=== PATIENT | female | born 1965 | race Caucasian/White ===

== ENCOUNTER 2025-02-15 06:59 | Day surgery (SDC) | payer OTHER, SELFPAY ==
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
[2025-02-11 10:13] VITALS: BMI 34.6
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
--- OUTSIDE RECORDS SUMMARY | 2025-02-11 17:14 | XMS_ITS | Clinical Summary ---
Author Organization [facility] Address [address] [place] [address] Care Team Providers Care Printing Grey Cloth Tender Name Role Phone Deb Matthew MD Primary Care Provider [phone] Allergies Active Allergy Reactions Criticality Noted Date Comments Alternaria Alternata 03/06/2016 Allegies testing Animal Dander 03/06/2016 Allergies testing Aspergillus Species 03/06/2016 Bermuda Grass 03/06/2016 Allergies testing Dronabinol 03/04/2014 rash Dust Mite Extract 03/06/2016 Lambs Quarters 03/06/2016 Allegies testing Latex 12/10/2018 Other reaction(s): Rash/Dermatitis Molds & Smuts 03/06/2016 (HELMINTHOSPORIUM) Allegies skin test Povidone Iodine 03/06/2016 Allergies testing Medications Medication Sig Dispensed Refills Start Date End Date Status lidocaine (LIDODERM) 5 % lidocaine 5 % topical patch 0 Active Lidocaine HCl 3 % CREA lidocaine HCl 3 % topical cream 0 03/10/2019 Active fluticasone (FLONASE) 50 MCG/ACT nasal spray fluticasone propionate 50 mcg/actuation nasal spray,suspension 0 Active methocarbamol (ROBAXIN) 750 MG tablet 0 04/06/2019 Active gabapentin (NEURONTIN) 600 MG tablet 0 03/11/2019 Active Naloxone HCl (NARCAN) 4 MG/0.1ML LIQD Narcan 4 mg/actuation nasal spray 0 09/27/2017 Active ibuprofen (ADVIL,MOTRIN) 600 MG tablet 0 04/06/2019 Active EPINEPHrine 0.3 MG/0.3ML SOAJ 0 02/03/2019 Active acetaminophen (TYLENOL 8 HOUR) 650 MG CR tablet Take 650 mg by mouth. 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 There is bilateral neural foraminal narrowing at the same level. Overview: 02/09-mri lumber-There is a moderate central disc herniation at L5-S1 without focal nerve root compression. Degenerative disc disease of the L5-S1 disc Abdominal pain, chronic, generalized 05/19/2010 Left-sided chest wall pain 12/30/2009 Family history of malignant neoplasm of gastrointestinal tract 12/30/2009 Overview: Overview: Negative colonoscopy 06/05/2010, no colon cancer screening needed for 10 years. Chronic LUQ pain 12/30/2009 Abdominal pain 11/21/2009 Overview: Overview: 11/08- ct scan Small left ovarian cyst. Status post cholecystectomy. Otherwise unremarkable CT of the abdomen and pelvis Pain of hand 11/10/2009 Overview: Overview: Dr morrow, [facility] did surgery after attacked by 2 dogs.went to [facility] Dr Karl Ramirez.previous pcp Family History Medical History Relation Name Comments Diabetes Brother Heart disease Brother Cancer Father Arthritis Mother Hypertension Mother Scoliosis Mother Relation Name Status Comments Brother Father Mother Social History Tobacco Use Types Packs/Day Years Used Date Smoking Tobacco: Every Day Cigarettes 1 Smokeless Tobacco: Never Alcohol Use Standard Drinks/Week Comments No 0 (1 standard drink = 0.6 oz pur e alcohol) Sex and Gender Information Value Date Recorded Sex Assigned at Not on file Gender Identity Not on file Sexual Orientation Not on file Job Start Date Occupation Industry Not on file Not on file Not on file Last Filed Vital Signs Vital Sign Reading Time Taken Comments Blood Pressure - - Pulse - - Temperature - - Respiratory Rate - - Oxygen Saturation - - Inhaled Oxygen Concentration - - Weight 72.6 kg (160 lb) 05/14/2019 11:11 AM EST Height 152.4 cm (5') 05/14/2019 11:11 AM EST Body Mass Index 31.25 05/14/2019 11:11 AM EST Plan of Treatment Health Maintenance Due Date Last Done Comments Hepatitis B Vaccines (1 of 3 - 3-dose series) 1967 Hepatitis C Screening 1965 COVID-19 Vaccine (#1) 02/20/1968 Pneumococcal Vaccine (1 of 2 - PCV) 08/19/1973 Depression Screening 1979 BMI Counseling 08/19/1985 Preventative Health Evaluation 08/19/1985 Tobacco Cessation Counseling 08/19/1985 Cervical Cancer Screening (Pap Smear) 08/19/1988 Colon Cancer Screening (Colonoscopy) 08/19/2012 Breast Cancer Screening (Mammogram) 08/19/2017 Shingrix-Zoster Vaccine (1 of 2) 08/19/2017 DTap / Tdap / Td (2 - Td or Tdap) 04/06/2023 04/06/2013 Influenza Vaccine (#1) 2024 9, 04/07/2018, 06/01/2014, Additional history exists RSV Ped < 20 months Aged Out No longe r eligible based on patient's age to complete this topic Care Teams Printing Grey Cloth Tender Relationship Specialty Start Date End Date Deb Matthew MD PCP - General Internal Medicine 03/10/19
--- OUTSIDE RECORDS SUMMARY | 2025-02-11 17:14 | XMS_ITS | Data Portability ---
Author Organization [place] - [facility], Allergy Address [address] [place] [id number] Care Team Providers Care Fishing Reel Assembler Name Role Phone ALF RIZZO Primary Care Provider Assessment Encounter Date Assessment Date Assessment LastModified by Organization Details LastModified Time 07/14/2024 07/14/2024 Patient notes that her nasal breathing has been good. She uses loratadine for itching and Flonase as needed. Her nose is dry on exam and I have recommended nasal saline daily. Overall she is quite satisfied with the results of her surgery and the management of her allergies. Examination shows a relatively straight septum with slight deviation to the right. There is minimal turbinate congestion without polyps. At this point I will refill her fluticasone nasal spray and loratadine. Follow-up annually or sooner if necessary. If her hoarseness does not improve in the next couple of months I have recommend follow up for fiberoptic laryngoscopy. We held off on this today as her symptoms have only been presents for a few days. [email or web address] Not available 07/14/2024 11:52:10 Plan of Treatment Reminders Order Date Submit Date Provider Last Modified By Organization Details Last Modified Time Details Appointments Establish ed 15 2025 10:30A M VALERIE FRAZIER MD Not available Not available Not available Lab None recorded. Referral None recorded. Procedures None recorded. Surgeries None recorded. Imaging None recorded. Medication Orders Flonase Allergy Relief 50 mcg/actua tion nasal spray,rose mary pension 2024 025 [facility] [employer] [facility], [address], [place], [id number], 07/14/2024 11:45:07 loratadin e 10 mg tablet 2024 025 [facility], [address], [place], [address], 07/14/2024 11:45:10 Patient TargetsNo targets recorded. Patient InstructionsNo instructions recorded. Reason for Referral None Reported. Problems Name Problem SNOMED Code Status Onset Date Resolution Date Notes Provider Name and Address Organization Details Recorded Time Impacted cerumen 65529895 Completed 201311/01/2023 Impacted cerumen; CMS Risk: low risk [facility] Treatmen t: establis hed problem (to examiner ): stable or improved Note: Date Diagnose d: 4 4:20 PM (380.4) Not Available [facility] 4 02:45:32 Bilatera l earache 252348883 Active 2015 Otalgia, bilatera l; Note: Date Diagnose d: 05/09/2015 11:12 AM (H92.03) Not Available [facility] 4 02:45:33 Deviated nasal septum 618320997 Completed 201511/01/2023 Deviated nasal septum; Note: Date Diagnose d: 05/09/2015 11:15 AM (J34.2) Not Available [facility] 4 02:45:24 Impacted cerumen of bilatera l ears 08641308769 24844 Active 2015 Impacted cerumen, bilatera l; Note: Date Diagnose d: 05/09/2015 11:08 AM (H61.23) Not Available [facility] 4 02:45:33 Dyspnea 177856877 Active 2015 Shortnes s of breath; Note: Date Diagnose d: 6 1:25 PM (R06.02) Not Available [facility] 4 02:45:34 Dysphoni a 57924501 Active 2015 Hoarsene ss; Note: Date Diagnose d: 6 1:23 PM (R49.0) Not Available [facility] 4 02:45:29 Hypertro phy of nasal turbinat es 82283710 Completed 201511/01/2023 Hypertro phy of nasal turbinat es; Note: Date Diagnose d: 6 11:37 AM (J34.3) Not Available [facility] 4 02:45:27 Tobacco dependen ce caused by cigarett es 00999631089 561329 Active 2016 Nicotine dependen ce, cigarett es, uncompli cated; Note: Date Diagnose d: 02/28/20 17 2:01 PM (F17.210 ) Not Available [facility] 4 02:45:26 Posterio r rhinorrh ea 49157454 Active 2017 Postnasa l drip; Note: Date Diagnose d: 08/30/2017 10:34 AM (R09.82) Not Available [facility] 4 02:45:25 Sensorin eural hearing loss of bilatera l ears 532920043 Active 2017 Sensorin eural hearing loss, bilatera l; Note: Date Diagnose d: 02/29/20 18 1:26 PM (H90.3) Not Available [facility] 4 02:45:26 Dizzines s and giddines s 365549977 Active 2018 Dizzines s and giddines s; Note: Date Diagnose d: 04/04/2018 9:35 AM (R42) Not Available [facility] 4 02:45:28 Pain of temporom andibula r joint 23818906 Active 2018 Arthralg ia of temporom andibula r joint; Note: Date Diagnose d: 04/04/2018 9:35 AM (M26.62) Not Available [facility] 4 02:45:32 Bilatera l tinnitus 30331364875 02 Active 2018 Tinnitus , bilatera l; Note: Date Diagnose d: 11/04/2018 10:06 AM (H93.13) Not Available [facility] 4 02:45:31 Injury of neck 27162704 Active 2019 Nasal trauma/i njury; Note: Date Diagnose d: 01/22/20 9:35 AM (959.09) Not Available [facility] 4 02:45:32 Follow-u p visit Active 2021 Medical surveill ance followin g complete d treatmen t; Note: Date Diagnose d: 03/16/20 22 4:59 PM (Z09) Not Available [facility] 4 02:45:28 Allergic rhinitis 12978430 Active 2022 Allergic rhinitis : Due to other allergen ; Note: Date Diagnose d: 3 3:14 PM (477.8) Allerg ic rhinitis : Due to other allergen ; Note: Date Diagnose d: 2 9:47 AM (477.8) ; Start Date : 03/09/20 22 Aller gic rhinitis : Due to other allergen ; Note: Date Diagnose d: 02/29/20 22 3:08 PM (477.8) ; Start Date : 02/29/20 22 Aller gic rhinitis : Due to other allergen ; Note: Date Diagnose d: 2 1:58 PM (477.8) ; Start Date : 01/03/20 22 Aller gic rhinitis : Due to other allergen ; Note: Date Diagnose d: 2 10:59 AM (477.8) ; Start Date : 12/14/19 22 Aller gic rhinitis : Due to other allergen ; Note: Date Diagnose d: 2 2:19 PM (477.8) ; Start Date : 06/22/19 22 Aller gic rhinitis : Due to other allergen ; Note: Date Diagnose d: 2 9:39 AM (477.8) ; Start Date : 05/19/19 22 Aller gic rhinitis : Due to other allergen ; Note: Date Diagnose d: 2 2:18 PM (477.8) ; Start Date : 04/26/19 22 Aller gic rhinitis : Due to other allergen ; Note: Date Diagnose d: 02/21/20 21 11:59 AM (477.8) ; Start Date : 02/21/20 21 Aller gic rhinitis : Due to other allergen ; Note: Date Diagnose d: 01/12/20 21 1:35 PM (477.8) ; Start Date : 01/12/20 Aller gic rhinitis : Due to other allergen ; Note: Date Diagnose d: 11/30/2020 2:23 PM (477.8) ; Start Date : 12/01/19 Aller gic rhinitis : Due to other allergen ; Note: Date Diagnose d: 1 2:26 PM (477.8) ; Start Date : 10/22/19 Aller gic rhinitis : Due to other allergen ; Note: Date Diagnose d: 08/03/2020 11:52 AM (477.8) ; Start Date : 08/04/19 Aller gic rhinitis : Due to other allergen ; Note: Date Diagnose d: 9:30 AM (477.8) ; Start Date : 07/14/19 Aller gic rhinitis : Due to other allergen ; Note: Date Diagnose d: 11:56 AM (477.8) ; Start Date : 06/24/19 Aller gic rhinitis : Due to other allergen ; Note: Date Diagnose d: 2:08 PM (477.8) ; Start Date : 06/09/19 Aller gic rhinitis : Due to other allergen ; Note: Date Diagnose d: 1 2:05 PM (477.8) ; Start Date : 05/27/19 Aller gic rhinitis : Due to other allergen ; Note: Date Diagnose d: 1 3:39 PM (477.8) ; Start Date : 04/26/19 Aller gic rhinitis : Due to other allergen ; Note: Date Diagnose d: 1 2:49 PM (477.8) ; Start Date : 04/14/19 Aller gic rhinitis : Due to other allergen ; Note: Date Diagnose d: 03/31/20 10:50 AM (477.8) ; Start Date : 03/31/20 Aller gic rhinitis : Due to other allergen ; Note: Date Diagnose d: 03/16/20 12:35 PM (477.8) ; Start Date : 03/16/20 Aller gic rhinitis : Due to other allergen ; Note: Date Diagnose d: 0 3:20 PM (477.8) ; Start Date : 03/01/20 Aller gic rhinitis : Due to other allergen ; Note: Date Diagnose d: 02/17/20 2:32 PM (477.8) ; Start Date : 02/17/20 Aller gic rhinitis : Due to other allergen ; Note: Date Diagnose d: 0 10:24 AM (477.8) ; Start Date : 02/04/20 Aller gic rhinitis : Due to other allergen ; Note: Date Diagnose d: 01/20/20 12:15 PM (477.8) ; Start Date : 01/20/20 Aller gic rhinitis : Due to other allergen ; Note: Date Diagnose d: 01/13/20 4:03 PM (477.8) ; Start Date : 01/13/20 Aller gic rhinitis : Due to other allergen ; Note: Date Diagnose d: 0 2:54 PM (477.8) ; Start Date : 01/06/20 Aller gic rhinitis : Due to other allergen ; Note: Date Diagnose d: 12/09/2019 3:45 PM (477.8) ; Start Date : 12/09/19 Aller gic rhinitis : Due to other allergen ; Note: Date Diagnose d: 12/02/2019 3:40 PM (477.8) ; Start Date : 12/02/19 Aller gic rhinitis : Due to other allergen ; Note: Date Diagnose d: 0 3:24 PM (477.8) ; Start Date : 11/25/19 Aller gic rhinitis : Due to other allergen ; Note: Date Diagnose d: 0 1:00 PM (477.8) ; Start Date : 11/11/19 Aller gic rhinitis : Due to other allergen ; Note: Date Diagnose d: 11/04/2019 2:53 PM (477.8) ; Start Date : 11/04/19 Aller gic rhinitis : Due to other allergen ; Note: Date Diagnose d: 0 2:05 PM (477.8) ; Start Date : 10/27/19 Aller gic rhinitis : Due to other allergen ; Note: Date Diagnose d: 10/13 Not Available [facility] 4 02:45:26 Impacted cerumen in left ear [id number] 30168 Active 2024 Mariah ordaz MA [facility] 5 11:50:43 Problem Notes None recorded. Procedures Surgical History Date Name Laterality Status Provider Name and Address Organization Details Recorded Time 5 Cerumen removal without microscope left completed Mariah Hubbard MA [facility] 07/14/2024 11:49:49 Imaging Results None recorded. Procedure Notes None recorded. Medical Equipment None Reported. Medications Name Sig Start Date Stop Date Status Note LastModified by Organization Details LastModified Time gabapenti n 600 mg tablet active Not Available Not Available Not Available ibuprofen 800 mg tablet active Medicati on ID: [id number] B rand Name: ibuprofe n Send Method: E-Prescr ibed Sub s Allowed: subs OK Medic ationGen ericName : ibuprofe n Not Available Not Available Not Available tizanidin e 4 mg tablet 04/25 completed Medicati on ID: [id number] D uration Value: 30 Reason: () Brand Name: tizanidi ne Send Method: E-Prescr ibed Sub s Allowed: subs OK Speci al Instruct ion: take 1 tablet by mouth three times a day if needed for muscle spasm Me dication GenericN sandra: tizanidi ne Not Available Not Available Not Available meloxicam 15 mg tablet 08/29 completed Medicati on ID: [id number] D uration Value: 30 Reason: () Brand Name: meloxica m Send Method: E-Prescr ibed Sub s Allowed: subs OK Medic ationGen ericName : meloxica m Not Available Not Available Not Available polyvinyl alcohol 1.4 % eye drops active Not Available Not Available Not Available Refresh Plus 0.5 % eye drops in a dropperet te 08/01 completed Medicati on ID: [id number] D uration Value: 30 Reason: () Brand Name: Refresh Plus Sen d Method: E-Prescr ibed Sub s Allowed: subs OK Speci al Instruct ion: apply 1 drop into affected eye three times a day if needed WHEN DRY OR GRITTY M edicatio nGeneric Name: Refresh Plus Not Available Not Available Not Available tramadol 50 mg tablet 06/18 completed Medicati on ID: [id number] D uration Value: 15 Reason: () Brand Name: tramadol Send Method: E-Prescr ibed Sub s Allowed: subs OK Medic ationGen ericName : tramadol Not Available Not Available Not Available acetamino phen ER 650 mg tablet,ex tended release active Not Available Not Available Not Available meloxicam 7.5 mg tablet 09/10 completed Medicati on ID: [id number] D uration Value: 11 Reason: () Brand Name: meloxica m Send Method: E-Prescr ibed Sub s Allowed: subs OK Medic ationGen ericName : meloxica m Not Available Not Available Not Available Deep Sea Nasal 0.65 % spray aerosol active Medicati on ID: [id number] B rand Name: Deep Sea Nasal Se nd Method: E-Prescr ibed Sub s Allowed: subs OK Medic ationGen ericName : Deep Sea Nasal Not Available Not Available Not Available methocarb moo 750 mg tablet active Not Available Not Available No t Available lidocaine 5 % topical patch active Not Available Not Available Not Available lidocaine HCl 3 % topical cream active Medicati on ID: [id number] B rand Name: lidocain e HCl Send Method: E-Prescr ibed Sub s Allowed: subs OK Medic ationGen ericName : lidocain e HCl Not Available Not Available Not Available epinephri ne 0.3 mg/0.3 mL injection , auto-inje ctor 1 pen injector intramus cularly active Not Available Not Available No t Available Nasonex 50 mcg/actua tion [place] 2 spray into both nostrils 2015 active Medicati on ID: [id number] D uration Value: 30 Brand Name: Nasonex Send Method: E-Prescr ibed Sub s Allowed: subs OK Medic ationGen ericName : Nasonex Not Available Not Available Not Available ibuprofen 600 mg tablet active Not Available Not Available Not Available methylpre dnisolone 4 mg tablets in a dose pack active Medicati on ID: [id number] B rand Name: methylpr ednisolo ne Send Method: E-Prescr ibed Sub s Allowed: subs OK Medic ationGen ericName : methylpr ednisolo ne Not Available Not Available Not Available loratadin e 10 mg tablet Take 1 tablet by mouth once a day active Not Available Not Available No t Available medroxypr ogesteron e 150 mg/mL intramusc ular syringe 12/03 completed Medicati on ID: [id number] D uration Value: 90 Reason: () Brand Name: medroxyp rogester one Send Method: E-Prescr ibed Sub s Allowed: subs OK Speci al Instruct ion: use as directed at physicia n's office every 3 months Anthony Briones Name: medroxyp rogester one Not Available Not Available Not Available Restasis 0.05 % eye drops in a dropperet te active Not Available Not Available Not Available DermOtic Oil 0.01 % ear drops Instill 5 drop twice a day as directed active Medicati on ID: [id number] P sergey d By Name: GAEL Levine nd Name: DermOtic Oil Send Method: E-Prescr ibed Sub s Allowed: subs OK Medic ationGen ericName : DermOtic Oil Not Available Not Available Not Available diclofena c 1 % topical gel active Not Available Not Available Not Available Artificia l Tears (ee622-ep promell-g lycerin) 1 %-0.2 %-0.2 % eye drops 10/24 completed Medicati on ID: [id number] D uration Value: 30 Reason: () Brand Name: Artifici al Tears(pg -hypm-gl yc) Send Method: E-Prescr ibed Sub s Allowed: subs OK Medic ationGen ericName : Artifici al Tears(pg -hypm-gl yc) Not Available Not Available Not Available AneCream5 5 % topical 01/02 completed Medicati on ID: [id number] B rand Name: AneCream 5 Send Method: E-Prescr ibed Sub s Allowed: subs OK Medic ationGen ericName : AneCream 5 Not Available Not Available Not Available Flonase Allergy Relief 50 mcg/actua tion nasal spray,rose mary pension 2 puff into both nostrils once daily 2024 active Not Available Not Available Not Avai lable Vitals Date Recorded Body height Body mass index (BMI) Body weight Provider Name and Address Organization Details Last Updated DateTime 07/14/2024 157.48 cm 32.9 kg/m2 43324.63 g Darius Patricia MA - [facility] 07/14/2024 11:37:30 Social History None recorded. Functional Status None recorded. Mental Status None recorded. Family History Nothing Reported. Medical History No medical history recorded. Gynecological HistoryNo gynecological history recorded. Obstetrics History GPAL:G 0 P 0 0 0 0 Past Encounters Encounter ID Performer Location Encounter Start Date Encounter Closed Date Diagnosis/Indication Diagnosis SNOMED-CT Code Diagnosis ICD10 Code Diagnosis IMO Codes Diagnosis Note [id number] MARIAH HUBBARD PA-C [facility] on [address] [place] [address] 07/14/2024 11:31:17 07/14/2024 11:50:55 Allergic rhinitis 49859404 J30.9 Dysphonia 96295131 R49.0 Impacted c erumen in left ear 4002637154 212222 H61.22 Health Concerns Section Related Observation LastModified by Organization Detai ls LastModified Time None Recorded Concern Status LastModified by Organization Details LastModified Time None Recorded Advance Directives Directive None Recorded Payers Insurance Date Sequence Insurance Name Policy Number Policy Norman Covered Member ID Norman Member ID Guarantor Name 07/17/2024 1 [facility] PLAN (MEDICAID HMO) BELL Tong [id number] Flores Tong Notes Date Note Type Note Provider Name and Address Organization Details Recorded Time 07/14/2024 text/html ROS as noted in the HPI 58 year old female presents for yearly allergy appointment. Overall she feels that her allergy symptoms are well controlled with Loratidine and Flonase. She completed SCIT a couple of years ago and feels that her allergy symptoms did improve with the shots. She reports a few days of hoarse voice which she attributes to allergy and the change in season. VALERIE FRAZIER MD [address] [place] [address], [phone], [place] - [facility] 07/15/2024 08:01:03 OBGyn Episode No OBEpisode recorded.
--- OUTSIDE RECORDS SUMMARY | 2025-02-11 17:14 | XMS_ITS | Encounter Summary ---
Author Organization [facility] Address [address] [place] [address] Care Team Providers Care Explosive Ordnance Specialist Name Role Phone Sydney Amaya MD Primary Care Provider [phone] Reason for Visit * Reason Onset Date Comments Request For Order(s) 02/10/2025 MRI Encounter Details Date Type Department Care Team (Late st Contact Info) Description 02/10/2025 Telephone Orthopedic Surgery - [place] [address] [facility] [address] [place] [address] Rochelle Lew MA Social History Tobacco Use Types Packs/Day Years [...] AM EST documented as of this encounter Progress Notes * Rochelle Lew MA - 02/10/2025 12:30 PM EST Patient came into office stating she has been having severe pain and was told she can get an MRI ordered if pain continues. Please advise documented in this encounter Plan of Treatment Upcoming Encounters Date Type Department Care Team (Late st Contact Info) Description 02/12/2025 2:00 PM EST Office Visit Orthopedic Surgery - [place] [address] [facility] [address] [place] [phone] Yolanda Brooks PA [address] [facility] [address] [place] [address] 02/18/2025 2:30 PM EST Office Visit Orthopedic Surgery - [place] 250 [facility] 250 [place] [phone] Marbin Nunez, DPM 175 [facility] 250 [place] [phone] 06/10/2025 2:00 PM EDT Office Visit Internal Medicine - [facility] 305 [place] [address] Dyan Farah, HALIMA 305 [place] [address] 06/22/2025 3:30 PM EDT Office Visit Pulmonology - [place] [facility] 200 [place] [phone] La Nena Abraham MD [address] [place] [phone] documented as of this encounter Goals Goal Patient Goal Type Associated Problems Recent Progress Patient-Stated? Author OT goals in 8 visits General No change(2024 12:48 PM EDT) No Yolanda Foster, OT Note: Pt will return demo/report compliance w/ HEP (activity modification, joint protect, pain manage, therex, splint/tape, etc) 10/19 Pt will demo L team physician strength at least 20# to complete IADL activity ie carry grocery, open bottles 10/19 Met for strength however shrieks in pain w/ team physician assess to 20# and reports intolerance for these activities Demo L elbow/wrist strength at least 4/5 w/out signif pain to enable reaching from higher shelves 10/19 Not met, pain limited Pain to palp at L ext mass not exceed 1-2/10 10/19/Not met, reports severe pain documented as of this encounter Visit Diagnoses Not on filedocumented in this encounter Care Teams Explosive Ordnance Specialist Relationship Specialty Start Date End Date Sydney Amaya MD [address] [facility] [place] [address] PCP - General Internal Medicine 12/10/24 documented as of this encounter
--- OUTSIDE RECORDS SUMMARY | 2025-02-11 17:15 | XMS_ITS | Encounter Summary ---
Author Organization [facility] [place] [address] Care Team Providers Care Quality Improvement Engineer Name Role Phone Sydney Amaya MD Primary Care Provider [phone] Reason for Visit * Reason Onset Date Comments pt-1 02/09/2025 [place] Physiatry [place] Encounter Details Date Type Department Care Team (Late st Contact Info) Description 02/09/2025 Telephone Internal Medicine - [place] 305 [place], [place] [phone] Sydney Amaya MD [address] [place] [address] Social History Tobacco Use Types Packs/Day Years [...] as of this encounter Progress Notes * Sandy Rivera MA - 02/10/2025 10:00 AM EST PT I form was completed / submitted on line with [employer] PT 1 tracking # is: [id number] #4/ year * Nafisa Mccarty - 02/09/2025 11:15 AM EST PT-1 Request Call [facility]'s Medicaid Group new provider or submitter number is [id number] Verify and document patients [place] Health insurance ID # (NOT [facility] ID): [id number] Payor: [employer] PLAN / Plan: [employer] MEDICAID / Product Type: *No Product type* / Patient mailing address: [place] [address] [address] [place] [phone] (home) [phone] (work) Pt. demographics verified? yes If not accurate, update registration. Is this a NEW request or a RENEWAL? New request Name of treating facility: [facility] Name (first & last) of treating provider? required : Delbert Conde, DO What is the medical reason why the patient is seeing the above provider? Injection lower back and neck Address/Zip code for treating provider: [address] [place] [address] Phone # for treating provider: [phone] Is the provider in the [facility] network (do they accept [place] Health insurance)? yes What specialtly is this provider? Family Physiatry When is the visit scheduled for? 02/15 7:30 am How often you will be seeing this particular provider? 4x a year or as needed Do you have friends or family who can transport you to this visit? no If yes, do not complete request. Is there anything stopping you from using public transportation? If yes, explain: no Is there a medical reason (diagnosis) why you are unable to use public transportation? If yes, explain: arthritis and back pain Does patient carry self-administered oxygen? no Does patient require door through door or room to room service( ex: member cannot ambulate or wait independently outside their home/facility for transportation. no Is this is for an Adult Day Program or Suboxone clinic No If yes to above what is arrival time and what is departure time If yes to above how many days a week? Do you need a wheelchair van? no If you use a wheelchair what is the height, width & length of the wheelchair? Do you need an escort to accompany you? If yes, explain why. no Will you have an alternative pick-up address? yes [address] [facility] [address] [facility] [address] Do you have a service animal? no PT DOES NOT NEED RELEASE OF INFORMATION SIGNED documented in this encounter Plan of Treatment Upcoming Encounters Date Type Department Care Team (Late st Contact Info) Description 02/12/2025 2:00 PM EST Office Visit Orthopedic Surgery [facility] 175 [facility] 140 [place] [phone] Yolanda Brooks PA 174 [facility] 140 [place] [phone] 02/18/2025 2:30 PM EST Office Visit Orthopedic Surgery - [place] 250 175 [facility] 250 [place] [phone] Marbin Nunez, EBENEZERM [address] [phone] 06/10/2025 2:00 PM EDT Office Visit Internal Medicine - [address] [phone] Dyan Farah, HALIMA 305 [place] [address] 06/22/2025 3:30 PM EDT Office Visit Pulmonology - [place] 175 [facility] 200 [place] [phone] La Nena Abraham MD 230 [place] [phone] documented as of this encounter Goals Goal Patient Goal Type Associated Problems Recent Progress Patient-Stated? Author OT goals in 8 visits General No change(2024 12:48 PM EDT) No Yolanda Foster, OT Note: Pt will return demo/report compliance w/ HEP (activity modification, joint protect, pain manage, therex, splint/tape, etc) 10/19 Pt will demo L licensed psychiatric technician strength at least 20# to complete IADL activity ie carry grocery, open bottles 10/19 Met for strength however shrieks in pain w/ licensed psychiatric technician assess to 20# and reports intolerance for these activities Demo L elbow/wrist strength at least 4/5 w/out signif pain to enable reaching from higher shelves 10/19 Not met, pain limited Pain to palp at L ext mass not exceed 1-2/10 10/19/Not met, reports severe pain documented as of this encounter Visit Diagnoses Not on filedocumented in this encounter Care Teams Quality Improvement Engineer Relationship Specialty Start Date End Date Sydney Amaya MD [address] [place] [address] [place] [phone] PCP - General Internal Medicine 12/10/24 documented as of this encounter
--- OUTSIDE RECORDS SUMMARY | 2025-02-11 17:15 | XMS_ITS | Clinical Summary ---
Author Organization [facility] Address [address] [place] [address] Phone Care Team Providers Care Signals Intelligence Analysis Manager Name Role Phone Deb Matthew MD Primary Care Provider Unavailable Allergies Active Allergy Reactions Criticality Noted Date Comments Cat Dander 06/14/2020 Ibuprofen 06/14/2020 Lidocaine 06/14/2020 Marijuana/Cannabinoid 06/14/2020 Ragweed 06/14/2020 Medications gabapentin (NEURONTIN) 600 MG tablet Take 600 mg by mouth 3 (three) times a day. Active ibuprofen (ADVIL,MOTRIN) 600 MG tablet Take 600 mg by mouth every 6 (six) hours as needed for pain (specific location in comments). Active acetaminophen (TYLENOL) 650 MG CR tablet Take 650 mg by mouth every 8 (eight) hours as needed for pain (specific location in comments). Active methocarbamol (ROBAXIN) 750 MG tablet Take 750 mg by mouth 2 (two) times a day. Active lidocaine (LIDAMANTLE) 3 % Crea Apply 1 application topically 2 (two) times a day as needed. Active lidocaine (LIDODERM) 5 % Place 1 patch onto the skin daily. Remove & Discard patch within 12 hours or as directed by Active Social History Tobacco Use Types Packs/Day Years Used Date Smoking Tobacco: Every Day Cigarettes Smokeless Tobacco: Never Alcohol Use Standard Drinks/Week Comments Never 0 (1 standard drink = 0.6 oz pur e alcohol) Education Answer Date Recorded Are you interested in more education? Not on shaun e 07/26/2022 Are you concerned about learning? Not on file 07/26/2022 No 07/26/2022 No 07/26/2022 Digital Access Answer Date Recorded No 08/21/2022 No 08/21/2022 No 08/21/2022 Reliable internet access at home? Not on file 08/21/2022 Device with a working camera? Not on file Comments Unknown Sex and Gender Information Value Date Recorded Sex Assigned at Female 06/14/2020 4:54 PM EDT Legal Sex Female 7:00 PM EST Gender Identity Female 06/14/2020 4:54 PM EDT Sexual Orientation Straight 06/14/2020 4: 54 PM EDT Last Filed Vital Signs Vital Sign Reading Time Taken Comments Blood Pressure 145/83 06/14/2020 4:45 PM EDT Pulse 91 06/14/2020 4:45 PM EDT Temperature 35.9 C (96.6 F) 06/14/2020 4:45 PM EDT Respiratory Rate 18 06/14/2020 4:45 PM EDT Oxygen Saturation 95% 06/14/2020 4:45 PM EDT Inhaled Oxygen Concentration - - Weight 72.6 kg (160 lb) 06/14/2020 4:45 PM EDT Height 157.5 cm (5' 2 ) 06/14/2020 4:45 PM EDT Body Mass Index 29.26 06/14/2020 4:45 PM EDT Plan of Treatment Health Maintenance Due Date Last Done Comments LIPID PANEL 1967 DEPRESSION SCREENING 1979 SMOKING Hx and SMOKELESS TOBACCO SCREENING 08/19/1980 HEPATITIS C SCREENING 08/19/1985 HIV ONE-TIME SCREENING (18-65 YEARS) 08/19/1985 PNEUMOCOCCAL VACCINES (50+ years) (1 of 2 - PCV) 08/19/1986 PAP SMEAR 08/19/1988 MAMMOGRAM 2007 COLOGUARD 08/19/2012 COLONOSCOPY 08/19/2012 COLORECTAL CANCER SCREENING 08/19/2012 FIT TEST 08/19/2012 FOBT 08/19/2012 SIGMOIDOSCOPY 08/19/2012 VIRTUAL COLONOSCOPY 08/19/2012 ZOSTER VACCINES (1 of 2) 08/19/2017 Adult Td,Tdap Booster 04/06/2023 04/06/2013 INFLUENZA VACCINE (#1) 2024 0, 02/20/2019, 04/07/2018, Additional history exists COVID-19 VACCINE ( - 2024- season) 2024 07/06/2020, 06/15/2020 RSV VACCINE (1 - 1-dose 75+ series) 08/19/2042 HEPATITIS A VACCINES Aged Out No long er eligible based on patient's age to complete this topic HIB VACCINES Aged Out No longer eligi ble based on patient's age to complete this topic IPV VACCINES Aged Out No longer eligi ble based on patient's age to complete this topic MENINGOCOCCAL VACCINES (ACWY) Aged Out No longer eligible based on patient's age to complete this topic MENINGOCOCCAL VACCINES (B) Aged Out N o longer eligible based on patient's age to complete this topic Medical Devices Not on file Insurance [address] [place], [place] [address] [facility] [facility] [place] [place] [id number] Care Teams Signals Intelligence Analysis Manager Relationship Specialty Start Date End Date Deb Matthew MD PCP - General Internal Medicine 03/08/19 Additional Source Comments The information contained in this document represents components of the legal health record. It is not the complete legal health record.[facility]
--- OUTSIDE RECORDS SUMMARY | 2025-02-11 17:15 | XMS_ITS | Encounter Summary ---
Author Organization [facility] [address] Care Team Providers Care Engraver Hand Soft Metals Name Role Phone Sydney Amaya MD Primary Care Provider [phone] Reason for Visit * Reason Onset Date Comments PT-1 02/05/2025 Encounter Details Date Type Department Care Team (Late st Contact Info) Description 02/05/2025 Telephone Internal Medicine - [place] 305 [place], [place] [phone] Sydney Amaya MD [address] [place] [address] Social History Tobacco Use Types Packs/Day Years [...] Progress Notes * Sandy Rivera MA - 02/08/2025 3:44 PM EST PT I form was completed / submitted on line with [email or web address] PT 1 tracking # is: [id number] #3/ year with escort * Yasmany Corado - 02/05/2025 2:03 PM EST PT-1 Request Call [facility] Medicaid Group new provider or submitter number is [id number] Verify and document patients [place] Health insurance ID # (NOT [facility] ID): [id number] Payor: [employer] PLAN / Plan: [employer] MEDICAID / Product Type: *No Product type* / Patient mailing address: [place] [address] [place] [phone] (home) [phone] (work) Pt. demographics verified? yes If not accurate, update registration. Is this a NEW request or a RENEWAL? New request Name of treating facility: [facility] Name (first & last) of treating provider? required : Dr. Pearson What is the medical reason why the patient is seeing the above provider? Cataracts Address/Zip code for treating provider: [address] [place] [address] Phone # for treating provider: [phone] Is the provider in the [facility] network (do they accept [place] Health insurance)? yes What specialtly is this provider? Eye Care When is the visit scheduled for? 03/15/25 How often you will be seeing this particular provider? 3 times/year Do you have friends or family who can transport you to this visit? no If yes, do not complete request. Is there anything stopping you from using public transportation? If yes, explain: no Is there a medical reason (diagnosis) why you are unable to use public transportation? If yes, explain: No Does patient carry self-administered oxygen? no Does patient require door through door or room to room service( ex: member cannot ambulate or wait independently outside their home/facility for transportation. no Is this is for an Adult Day Program or Suboxone clinic No If yes to above what is arrival time 1:45pm and what is departure time 3pm If yes to above how many days a week? 1 Do you need a wheelchair van? no If you use a wheelchair what is the height, width & length of the wheelchair? N/a Do you need an escort to accompany you? If yes, explain why. yes Will you have an alternative pick-up address? no Do you have a service animal? no PT DOES NOT NEED RELEASE OF INFORMATION SIGNED documented in this encounter Plan of Treatment Upcoming Encounters Date Type Department Care Team (Late st Contact Info) Description 02/12/2025 2:00 PM EST Office Visit Orthopedic Surgery - [place] 175 [facility] 140 [place] [phone] Yolanda Brooks PA 174 [facility] 140 [place] [address] 02/18/2025 2:30 PM EST Office Visit Orthopedic Surgery - [place] 250 175 [facility] 250 [place] [phone] Marbin Nunez DPM [address] [phone] 06/10/2025 2:00 PM EDT Office Visit Internal Medicine - [facility] 305 [place] [address] Dyan Farah, HALIMA 305 [place] [address] 06/22/2025 3:30 PM EDT Office Visit Pulmonology - [place] 175 [facility] 200 [place] [phone] La Nena Abraham MD [address] [place] [phone] documented as of this encounter Goals Goal Patient Goal Type Associated Problems Recent Progress Patient-Stated? Author OT goals in 8 visits General No change(2024 12:48 PM EDT) No Yolanda Foster, OT Note: Pt will return demo/report compliance w/ HEP (activity modification, joint protect, pain manage, therex, splint/tape, etc) 10/19 Pt will demo L packaging line attendant strength at least 20# to complete IADL activity ie carry grocery, open bottles 10/19 Met for strength however shrieks in pain w/ packaging line attendant assess to 20# and reports intolerance for these activities Demo L elbow/wrist strength at least 4/5 w/out signif pain to enable reaching from higher shelves 10/19 Not met, pain limited Pain to palp at L ext mass not exceed 1-2/10 10/19/Not met, reports severe pain documented as of this encounter Visit Diagnoses Not on filedocumented in this encounter Care Teams Engraver Hand Soft Metals Relationship Specialty Start Date End Date Sydney Amaya MD 305 [place] [phone] PCP - General Internal Medicine 12/10/24 documented as of this encounter
--- OUTSIDE RECORDS SUMMARY | 2025-02-11 17:15 | XMS_ITS | Clinical Summary ---
Author Organization [facility] Address [address] [place] [address] Phone Care Team Providers Care Working Foreman Name Role Phone Sydney Amaya MD Primary Care Provider [phone] Allergies Active Allergy Reactions Criticality Noted Date Comments Adhesive Tape-Silicones Itching 02/08/2022 Latex tape Allerg Ex,Grass Pollen-[place] 03/06/2016 Allergies testing Allergen Ext-Christina Albicans 03/06/2016 Allergies testing Alternaria Alternata Allergenic Extract 03/06/2016 [facility] testing Aspergillus Terreus Allergenic Extract 03/06/2016 Bee Venom Protein (Honey Bee) Anaphylaxis High 06/29/2024 Cat Dander 03/06/2016 Allergies testing Dronabinol 03/04/2014 rash Grass Pollen-[place], Standard 03/06/2016 Allergies testing House Dust Mite 03/06/2016 Latex 12/10/2018 Other Reaction(s): Rash/Dermatitis Lidocaine 06/14/2020 Marijuana (Cannabis) Rash 06/29/2024 Other Reaction(s): severe burning in the throat Mold 03/06/2016 (HELMINTHOSPORIUM) [facility] skin test Other 03/06/2016 [facility] testing bahena Povidone-Iodine 03/06/2016 Allergies testing Ragweed 06/14/2020 Silver Rash High 05/31/2022 [place] [facility] 03/06/2016 [facility] testing Medications cycloSPORINE 0.05 % drops 1 Drop 2 times daily. 10/11/19 17 Active fluticasone (VERAMYST) 27.5 mcg/actuation nasal spray 2 Sprays by Nasal route daily. Active gabapentin (NEURONTIN) 600 mg tablet Take 1 tablet by mouth 3 times daily. 11/24/19 21 Active lidocaine (LIDODERM) 5 % patch Place 1 Patch onto the skin daily. Apply for no more than 12 hours in any 24 hour period. 10/14/19 22 Active loratadine (CLARITIN) 10 mg tablet 09/07/19 21 Active methocarbamoL (ROBAXIN) 750 mg tablet Take 1 tablet by mouth 3 times daily. 01/21/20 21 Active umeclidinium-vi lanteroL (Anoro Ellipta) 62.5-25 mcg/actuation inhaler Inhale 1 puff by mouth 1 (one) time each day. 3 each 3 07/31/19 25 026 Active EPINEPHrine (EpiPen 2-Darnell) 0.3 mg/0.3 mL injectionIndica tions:Pain Inject 0.3 mL (0.3 mg total) into the thigh 1 (one) time for 1 dose. 1 each 06/12/19 25 Active fluticasone propionate (FLONASE) 50 mcg/actuation nasal spray Administer 2 sprays into each nostril 1 (one) time each day. Active bisacodyL (DULCOLAX) 5 mg EC tablet Take 2 tablets by mouth right before beginning bowel prep. See instructions provided by the office 2 tablet 11/06/19 25 Active polyethylene glycol (Golytely) 236-22.74-6.74 -5.86 gram solution Take 4L by mouth once for one dose. May substitue any PEG. Starting at 2PM the day before your procedure drink 1 8oz glasses at your own pace until you complete half of the gallon. Finish 2nd half of the gallon at 8PM. 4000 mL 11/06/19 25 Active cholecalciferol (VITAMIN D-3) 25 mcg (1,000 unit) tabletIndicatio ns:Pain Take 1 tablet (1,000 Units total) by mouth 1 (one) time each day. 90 tablet 1 12/02/19 25 Active cyanocobalamin (VITAMIN B-12) 1,000 mcg tabletIndicatio ns:Pain Take 1 tablet (1,000 mcg total) by mouth 1 (one) time each day. 90 tablet 1 12/19/19 25 026 Active umeclidinium-vi lanteroL (Anoro Ellipta) 62.5-25 mcg/actuation inhaler Inhale 1 puff by mouth 1 (one) time each day. 3 each 3 12/24/19 25 026 Active albuterol HFA (Ventolin HFA) 90 mcg/actuation inhalerIndicati ons:Chronic obstructive pulmonary disease, unspecified COPD type (CMS/HCC V24, CMS/HCC V28) Inhale 2 puffs by mouth every 6 (six) hours if needed for wheezing. 3 each 3 12/24/19 25 026 Active nicotine (Nicoderm CQ) 21 mg/[address] 1 patch on the skin 1 (one) time each day at the same time. 30 each 1 01/04/20 25 Active acetaminophen (TYLENOL) 500 mg tabletIndicatio ns:Pain Take 2 tablets (1,000 mg total) by mouth every 8 (eight) hours if needed for mild pain. 30 tablet 2 02/06/20 25 026 Active acetaminophen (TYLENOL) 500 mg tabletIndicatio ns:Pain Take 2 tablets (1,000 mg total) by mouth every 8 (eight) hours if needed for mild pain. 30 tablet 2 12/02/19 25 025 [facility], or Other Facility Administered Medication Ordered Dose Route Frequency Start Date End Date Status lidocaine (PF) (XYLOCAINE-MPF) 1 % injection 0.5 mLIndications:Planta r fascial fibromatosis .5 mL Once PRN Procedure 01/18/2025 01/18/2025 Ended triamcinolone acetonide (KENALOG-40) 40 mg/mL injection 20 mgIndications:Planta r fascial fibromatosis 20 mg Once PRN Procedure 01/18/2025 01/18/2025 Ended Active Problems Problem Noted Date Diagnosed Date Class 2 obesity due to exces s calories without serious comorbidity with body mass index (BMI) of 35.0 to 35.9 in adult 02/10/2025 Lung nodule 12/10/2024 Assessment & Plan (12/10/2024 3:17 PM EDT): She is scheduled for repeat CT chest on 12/15/2024. She will follow-up with thoracic surgery 12/24/2024. Chronic bronchitis (CMS/HCC V24, CMS/HCC V28) Assessment & Plan (12/10/2024 3:17 PM EDT): Continue current regimen of Anoro Ellipta, albuterol. Currently stable. Follow- up with pulmonology. Smoking cessation counseling was offered but she declined help. She wants to quit smoking on her own. Osteoarthritis 07/24/2023 B12 deficiency 05/03/2023 Radial styloid tenosynovitis (de quervain) 05/11 Gamekeeper's thumb of right hand 01/16/2022 Primary osteoarthritis of fi rst carpometacarpal joint of right hand 01/16/2022 Hallux valgus 01/24/2016 Overview (02/03/2024): deep peroneal nerve entrapment, chronic metatarsalgia Glaucoma suspect of both eyes 09/09/2014 Overview (02/03/2024): UTD exam, surveillance - no glaucoma at this time. 04/24 Stenosis of cervical spine 09/03/2011 Syncope 05/16/2011 Overview (02/03/2024): 2=A technically adequate M-mode, 2D and color flow Doppler echocardiogram remarkable for diastolic dysfunction without other abnormality 05/13-Normal myocardial perfusion imaging Left ventricular systolic function normal, with ejection fraction of 71% Back ache 02/05/2011 Overview (02/03/2024): 02/09-mri lumber-There is a moderate central disc herniation at L5-S1 without focal nerve root compression. Degenerative disc disease of the L5-S1 disc Neck ache 08/04/2010 Overview (02/03/2024): 08/09- spondylosis in neck 02/09-mri c spine At C5-6, there is cervical stenosis secondary to a broad based disc-osteophyte complex, which completely effaces the subarachnoid space both anteriorly and posteriorly. There is bilateral neural foraminal narrowing at the same level. Resolved Problems Problem Noted Date Diagnosed Date Resolved Date Cramping of hands 07/24/2023 02/10/2025 Chronic LUQ pain 12/30/2009 02/10/2025 Left-sided chest wall pain 12/30/2009 1 04/12/2024 Abdominal pain 11/21/2009 02/10/2025 Overview (02/03/2024): 11/08- ct scan Small left ovarian cyst. Status post cholecystectomy. Otherwise unremarkable CT of the abdomen and pelvis Carpal tunnel syndrome of right wrist 11/10/2009 02/10/2025 Overview (02/03/2024): Dr morrow, [facility] did surgery after attacked by 2 dogs.went to [facility] er Dr Karl Ramirez.previous pcp Encounters Date Type Department Care Team Description 02/10/2025 1:00 PM EST Consult Bariatric Surgery [facility] [address] [facility] [address] [place] [address] John Pace MD Class 2 obesity due to excess calories without serious comorbidity with body mass index (BMI) of 35.0 to 35.9 in adult (Primary Dx); Family history of carcinomas; Osteoarthritis, unspecified osteoarthritis type, unspecified site; Dietary counseling; Exercise counseling; Encounter for smoking cessation counseling 02/10/2025 Telephone Orthopedic Surgery [address] [place] [address] Rochelle Lew MA 02/09/2025 Telephone Internal Medicine - [facility] [address] [place], [place] [phone] Sydney Amaya MD 02/05/2025 Telephone Internal Medicine - [facility] [address] [place], [place] [phone] Sydney Amaya MD 01/25/2025 Telephone Internal Medicine - [facility] [address] [place], [place] [phone] Sydney Amaya MD 01/18/2025 1:30 PM EDT Office Visit Orthopedic Surgery - [place] [address] [facility] [address] [place] [phone] Marbin Nunez, DPM Plantar fascial fibromatosis (Primary Dx); Neuritis; Equinus contracture of ankle; Metatarsalgia of both feet; Verruca plantaris; Tailor's bunionette, right; Ingrowing nail 01/01/2025 Telephone Pulmonology - [place] [address] [facility] [address] [place] [phone] La Nena Abraham MD 12/24/2024 9:00 AM EDT Office Visit Lung Screening Program - [place] [address] [facility] [address] [place] [phone] Dara Alicea PA Multiple pulmonary nodules (Primary Dx); Tobacco abuse 12/23/2024 2:15 PM EDT Office Visit Pulmonology [facility] [address] [facility] [address] [place] [phone] La Nena Abraham MD Chronic obstructive pulmonary disease, unspecified COPD type (CMS/HCC V24, CMS/HCC V28) (Primary Dx); ILD (interstitial lung disease) (CMS/HCC V24, CMS/HCC V28); Trauma of chest, sequela; Lung nodule; Smoker 12/21/2024 Telephone [facility] [phone] Sydney Amaya MD 12/15/2024 2:26 PM EDT - 12/15/2024 11:59 PM EDT Hospital Encounter [facility] CT Scan [address] [place] [phone] Lung nodule Discharge Disposition: Home or Self Care 12/11/2024 Telephone [facility] [address] [place] [address] Sydney Amaya MD 12/10/2024 2:45 PM EDT [facility] [phone] Joel Lozano MD Lung nodule (Primary Dx); Chronic bronchitis, unspecified chronic bronchitis type (CMS/[facility] V24, CMS/[facility] V28); Elevated blood pressure reading; Screening for diabetes mellitus; Screening cholesterol level; Obesity (BMI 30-39.9); Immunization due 12/03/2024 2:15 PM EDT Office Visit Orthopedic Surgery - [place] [address] [facility] [address] [place] [phone] Marbin Nunez DPM Neuritis (Primary Dx); Plantar fascial fibromatosis; Verruca plantaris; Equinus contracture of ankle; Metatarsalgia of both feet; Tailor's bunionette, right 11/24/2024 Telephone Lung Screening Program - [place] [address] [facility] [address] [place] [phone] Frankie Huggins MD 11/19/2024 10:47 AM EDT Anesthesia Event [facility] Endoscopy [address] [place] [phone] Kartik Bernstein DO Hayes, Brett L, ROTOR BLADE INSTALLER 11/19/2024 10:12 AM EDT - 11/19/2024 11:59 PM EDT Hospital Encounter [facility] Endoscopy [address] [place] [phone] Blaze Manley MD Korobkov, Vitaliy, DO Hayes, Brett L, ROTOR BLADE INSTALLER Family hx of colon cancer Discharge Disposition: Home or Self Care from Last 3 Months Immunizations Immunization Administration Dates Next Due Influenza Quadravalent, MDCK , 0.5ml, preservative free (Flucelvax) 6mo and older 05/01/2023,02/24/2020,02/20/2019 Influenza Quadravalent, MDCK , 0.5ml, with preservative (Flucelvax) 6mo and older 04/07/2018 Influenza trivalent, 0.5mL, preservative free (Fluarix; FluLaval; Fluzone) ages 6mo and older (Afluria) 3 years and older 06/01/2014,04/06/2013,01/20/2012,2010,01/17/2010 Influenza trivalent, MDCK, 0 .5mL, preservative free (Flucelvax) 6mo and older 12/10/2024 PPD Test 03/16/2013 Td Tetanus diptheria (Tdvax) 7yo and older 07/27/2020 Tdap Tetanus diptheria acell ular pertussis (Boostrix; Adacel) 7yo and older 04/06/2013 Surgical History Surgery Date Site/Laterality Comments CHOLECYSTECTOMY 2004 PROCEDURE: OK CHOLECYSTECTOMY HAND SURGERY PROCEDURE: HISTORICAL HAND SURGERY COLONOSCOPY 06/05/2010 PROCEDURE: OK COLONOSCOPY FLX DX W/COLLJ SPEC WHEN PFRMD; COMMENT: Normal OTHER SURGICAL HISTORY 11/2013 PROCEDURE: OK LAMOP CERVICAL W/DCMPRN SPI CORD 2/> VERT SEG; COMMENT: howard COLONOSCOPY 2019 PROCEDURE: HISTORICAL COLONOSCOPY; COMMENT: nml, Medical History Medical History Date Comments Abdominal pain 11/21/2009 DX:Abdominal yang n; COMMENT: 11/08- ct scan Small left ovarian cyst. Status post cholecystectomy. Otherwise unremarkable CT of the abdomen and pelvis Chronic LUQ pain 12/30/2009 DX:Chronic LUQ pain Back ache 02/05/2011 DX:Back ache; CO MMENT: 02/09-mri lumber-There is a moderate central disc herniation at L5-S1 without focal nerve root compression. Degenerative disc disease of the L5-S1 disc Stenosis of cervical spine 09/03/2011 DX:St enosis of cervical spine Family history of colon canc er in father 04/10/2019 DX:Family history of colon c ancer in father Chronic bronchitis (CMS/HCC V24, CMS/HCC V28) 09/23/2023 Lung nodule 12/10/2024 Left-sided chest wall pain 12/30/2009 Family History Medical History Relation Name Comments Throat cancer Aunt fathers side Other: pot head Brother 1 Alfredo Heart attack Brother 2 Masoud Other: convicted of rape Brother 3 Spenser Colon cancer Father of colon c ancer Lung cancer Father asbestos exposu re Stomach cancer Father's side paternal Unc le 70's Cataracts Maternal Grandmother Hypertension Mother Other: atrial fib Mother Other: gout Mother Ovarian cancer Mother Breast cancer Mother's side m cousin Ovarian cancer Paternal Grandmother Uterine cancer Paternal Grandmother No Known Problems Sister Shanna Blindness Neg Hx glau, mac degen , strabismus Relation Name Status Comments Aunt Brother 1 Alfredo Alive 3,healthy Brother 2 Masoud Brother 3 Spenser Alive Father cacner lung Father's side Maternal Grandmother Mother Alive Mother's side Paternal Grandmother Sister Shanna Alive 1,healthy Social History Tobacco Use Types Packs/Day Years Used Date Smoking Tobacco: Every Day Cigarettes 1 45.5 Started: 1977 Smokeless Tobacco: Never Tobacco Cessation:Ready to Q uit: Not Asked; Counseling Given: Not Answered Alcohol Use Standard Drinks/Week Comments No 0 [...] Orientation Straight 02/18/2024 7: 01 AM EST Obstetrics History Para Term AB IAB SAB Ectopic Multiple Livin g Live Births 1 1 1 1 1 Date Outcome GA Total Labor Labor/2nd/3rd Weight Sex Type Anes PTL Vivi A1 A5 Name Clin 1985 Term F Vag-S pont Living Last Filed Vital Signs Vital Sign Reading Time Taken Comments Blood Pressure 142/74 02/10/2025 1:08 PM EST Pulse 72 02/10/2025 1:08 PM EST Temperature 36.6 C (97.8 F) 02/10/2025 1:08 PM EST Respiratory Rate 16 12/24/2024 8:30 AM EDT Oxygen Saturation 97% 12/24/2024 8:30 AM EDT Inhaled Oxygen Concentration - - Weight 87.5 kg (193 lb) 02/10/2025 1:08 PM EST Height 157.5 cm (5' 2 ) 02/10/2025 1:08 PM EST Body Mass Index 35.3 02/10/2025 1:08 PM EST Plan of Treatment Upcoming Encounters Date Type Department Care Team (Late st Contact Info) Description 02/12/2025 2:00 PM EST Office Visit Orthopedic Surgery - [address] [place] [address] Yolanda Brooks PA [address] [facility] [address] [place] [phone] 02/18/2025 2:30 PM EST Office Visit Orthopedic Surgery - [place] [address] [facility] [address] [place] [phone] Marbin Nunez, DPM [address] [facility] [address] [place] [phone] 06/10/2025 2:00 PM EDT Office Visit Internal Medicine - [facility] [address] [place] [phone] Dyan Farah, NUTRITION PROGRAM INSTRUCTOR [address] [place] [address] 06/22/2025 3:30 PM EDT Office Visit Pulmonology - [place] [address] [facility] [address] [place] [phone] La Nena Abraham MD [address] [place] [phone] Health Maintenance Due Date Last Done Comments Hepatitis B Vaccines (1 of 3 - 19+ 3-dose series) 08/19/1986 Pneumococcal Vaccine: 50+ Years (1 of 2 - PCV) 08/19/1986 RSV Immunization Adult Patients (1 - Risk 50-74 years 1-dose series) 08/19/2017 Zoster Vaccines (2 of 2) 11/10/2021 09/15/2021 HIV Screening 03/08/2022 Social Influencers of Health Screening 03/08/2022 Depression Screening 04/01/2024 COVID-19 Vaccine ( season) 2024 09/15/2021, 07/06/2020, 06/15/2020 Lung Cancer Screening (Low Dose CT) 06/03/2025 06/03/2024, 05/31/2023 Breast Cancer Screening 04/07/2026 04/07/19 25, 11/24/2022, 11/15/2021, Additional history exists Cervical Cancer Screening: HPV 06/29/2029 06/29/2024, 03/01/2020 Colorectal Cancer Screening: Colonoscopy 11/19/2029 11/19/2024, 11/16/2019 Cholesterol Screening (Lipid Panel) 12/10/2029 12/10/2024, 04/27/2021 DTaP,Tdap,and Td Vaccines (3 - Td or Tdap) 07/27/2030 07/27/2020, 04/06/2013 Hepatitis C Screening Completed 12/13/2021 Influenza Vaccine Completed 12/10/2024, , 02/24/2020, Additional history exists HIB Vaccines Aged Out No longer eligi ble based on patient's age to complete this topic HPV Vaccines Aged Out No longer eligi ble based on patient's age to complete this topic Hepatitis A Vaccines Aged Out No long er eligible based on patient's age to complete this topic IPV Vaccines Aged Out No longer eligi ble based on patient's age to complete this topic MMR Vaccines Aged Out No longer eligi ble based on patient's age to complete this topic Meningococcal ACWY Vaccine Aged Out N o longer eligible based on patient's age to complete this topic Meningococcal B Vaccine Aged Out No l onger eligible based on patient's age to complete this topic RSV Immunization Patients Under 20 months Aged Out No longer eligible based on patient's age to complete this topic Varicella Vaccines Aged Out No longer eligible based on patient's age to complete this topic Goals Goal Patient Goal Type Associated Problems Recent Progress Patient-Stated? Author OT goals in 8 visits General No change(2024 12:48 PM EDT) Yolanda Young, OT Note: Pt will return demo/report compliance w/ HEP (activity modification, joint protect, pain manage, therex, splint/tape, etc) 10/19 Pt will demo L solderer furnace strength at least 20# to complete IADL activity ie carry grocery, open bottles 10/19 Met for strength however shrieks in pain w/ solderer furnace assess to 20# and reports intolerance for these activities Demo L elbow/wrist strength at least 4/5 w/out signif pain to enable reaching from higher shelves 10/19 Not met, pain limited Pain to palp at L ext mass not exceed 1-2/10 10/19/Not met, reports severe pain Medical Devices Implanted Type Area Hand Candy Cutter Device Identifier Shelf Expiration Date Model / Serial / Lot Joints Joints Right: Wrist Spinal Hardware Spinal Hardware N/A: Neck Procedures Procedure Name Priority Date/Time Associated Diagnosis Comments INJECTION TENDON OR LIGAMENT Routine 01/18/2025 1:30 PM EDT Plantar fascial fibromatosis CT CHEST WO CONTRAST (LUNG-RADS F/U) Routine 12/15/2024 2:55 PM EDT Lung nodule CBC WITH AUTO DIFFERENTIAL Routine 12/10/2024 3:23 PM EDT Elevated blood pressure reading LIPID PANEL WITH REFLEX TO DIRECT LDL Routine 12/10/2024 3:23 PM EDT Screening cholesterol level CBC AND DIFFERENTIAL Routine 12/10/2024 3:23 PM EDT Elevated blood pressure reading HEMOGLOBIN A1C Routine 12/10/2024 3:23 PM EDT Screening for diabetes mellitus THYROID STIMULATING HORMONE WITH REFLEX TO FREE T4 AND FREE T3 Routine 12/10/2024 3:23 PM EDT Obesity (BMI 30-39.9) COLONOSCOPY Routine 11/19/2024 11:02 AM EDT Family hx of colon cancer HPV WITH REFLEX GENOTYPE Routine 06/29/2024 2:14 PM EDT Screening for cervical cancer CT LUNG SCREENING Routine 06/03/2024 2:0 3 PM EST Encounter for screening for malignant neoplasm of respiratory organs Nicotine dependence, cigarettes, uncomplicated MG MAMMO DIGITAL SCREENING W ERMIAS BILAT Routine 04/07/2024 1:06 PM EST Encounter for screening mammogram for breast cancer HM HEPATITIS C SCREENING Routine 12/13/2021 from Last 3 Months or Most Recently Relevant to Health Maintenance Results * Injection tendon or ligament (01/18/2025 1:30 PM EDT) Marbin Cervantes DPM - 01/18/2025 1:30 PM EDT Marbin Nunez DPM 01/18/2025 5:58 PM Injection tendon or ligament Indications: pain Details: 25 G needle Medications: 0.5 mL lidocaine (PF) 1 %; 20 mg triamcinolone acetonide 40 mg/mL Informed Consent: Site: Foot ligament tendon us Marbin Nunez DPM IN CLINIC/BEDSIDE ORDERAB LES Final Result * CT Chest wo Contrast (Lung-RADS F/U) (12/15/2024 2:55 PM EDT) Anatomical Region Laterality Modality Body Computed Tomogra phy 12/21/2024 3:22 PM EDT Impressions 12/21/2024 3:35 PM EDT Impression: 1. Resolution of the right upper lobe nodules being followed, consistent with a benign process. 2. No suspicious developing nodule is seen. Return to annual low-dose screening is recommended. Lung-RADS Category: Lung-RADS 2: Nodule(s) with benign appearance or behavior. Continue annual screening with Low Dose Chest CT in 12 months. Telerad GHADA ([id number]) -------- FINAL REPORT -------- Dictated By: dAa Sotelo Dictated Date: 12/21/2024 15:22 ET Assigned Physician: Ada Sotelo Reviewed and Electronically Signed By: Ada Sotelo Signed Date: 12/21/2024 15:35 ET Workstation ID: [id number] Transcribed By: Self Edit Transcribed Date: 12/21/2024 15:22 ET Narrative 12/21/2024 3:35 PM EDT History: 59 year-old current smoker, asymptomatic, for short-term follow-up of a lung RADS 4B lesion. Comparison: 09/08/24, 06/03/24 Technique: Helical volumetric imaging of the thorax was performed, using low- dose technique, without IV contrast. DLP: 146.66 mGy/cm CTDIvol: 4.89 mGy When You Wish Iterative reconstruction technique Findings: Lungs and Airways: The 11 x 8 mm solid nodule being followed in the posterior right upper lobe has resolved completely. The (separate) 10 mm solid nodule seen in the posteromedial right upper lobe on the May 2024 screening exam has also resolved completely. This is consistent with a benign, infectious/inflammatory process. The trachea and central bronchial tree remain patent. Diffuse bronchial wall thickening is again seen, consistent with bronchitis. There is mild subpleural reticulation bilaterally, unchanged, consistent with fibrosis. No honeycombing is seen. Minimal patchy juxtapleural ground glass opacity is seen in the posterior medial aspects of the lower lobes, almost certainly infectious/inflammatory. Minimal discoid atelectasis or scar is present at the base of the left lower lobe. A 6 mm solid, noncalcified nodule is without significant change in the periphery of the right lower lobe (image 100 series 3). There is a new 3 mm solid, noncalcified nodule in the left upper lobe (image 76). Few additional scattered sub-5 mm nodules are unchanged. Pleura: No pleural or pericardial effusions are identified. Base of neck, mediastinum and heart: The heart remains normal in size. Three- vessel coronary artery calcification is again noted. No developing thoracic lymphadenopathy is seen. Soft tissues: The overlying soft tissues are unremarkable. Abdomen: This study was performed without contrast and with lower than standard dose. These factors reduce the sensitivity for detection of small lesions in the upper abdomen. Cholecystectomy sequela are noted. Procedure Note Ada Sotelo MD - 12/21/2024 History: 59 year-old current smoker, asymptomatic, for [id number] of a lung RADS 4B lesion. Comparison: 09/08/24, 06/03/24 Technique: Helical volumetric imaging of the thorax was performed, usinglow-dose technique, without IV contrast. DLP: 146.66 mGy/cm CTDIvol: 4.89 mGy When You Wish Iterative reconstruction technique Findings: Lungs and Airways: The 11 x 8 mm solid nodule being followed in the posterior right upperlobe has resolved completely. The (separate) 10 mm solid nodule seen inthe posteromedial right upper lobe on the May 2024 screening exam hasalso resolved completely. This is consistent with a benign,infectious/inflammatory process. The trachea and central bronchial tree remain patent. Diffuse bronchialwall thickening is again seen, consistent with bronchitis. There is mildsubpleural reticulation bilaterally, unchanged, consistent with fibrosis.No honeycombing is seen. Minimal patchy juxtapleural ground glass opacityis seen in the posterior medial aspects of the lower lobes, almostcertainly infectious/inflammatory. Minimal discoid atelectasis or scar ispresent at the base of the left lower lobe. A 6 mm solid, noncalcified nodule is without significant change in theperiphery of the right lower lobe (image 100 series 3). There is a new 3mm solid, noncalcified nodule in the left upper lobe (image 76). Fewadditional scattered sub-5 mm nodules are unchanged. Pleura: No pleural or pericardial effusions are identified. Base of neck, mediastinum and heart: The heart remains normal in size.Three- vessel coronary artery calcification is again noted. No developingthoracic lymphadenopathy is seen. Soft tissues: The overlying soft tissues are unremarkable. Abdomen: This study was performed without contrast and with lower thanstandard dose. These factors reduce the sensitivity for detection of smalllesions in the upper abdomen. Cholecystectomy sequela are noted. IMPRESSION: Impression: 1. Resolution of the right upper lobe nodules being followed, consistentwith a benign process. 2. No suspicious developing nodule is seen. Return to annual low-dose screening is recommended. Lung-RADS Category: Lung-RADS 2: Nodule(s) with benign appearance orbehavior. Continue annual screening with Low Dose Chest CT in 12 months. Sonido URRUTIA ([id number]) -------- FINAL REPORT -------- Dictated By: Ada Sotelo Dictated Date: 12/21/2024 15:22 ET Assigned Physician: Ada Sotelo Reviewed and Electronically Signed By: Ada Sotelo Signed Date: 12/21/2024 15:35 ET Workstation ID: [id number] Transcribed By: Self Edit Transcribed Date: 12/21/2024 15:22 ET us Dara URRUTIA IMG CT PROCEDURES Final Resul t * Thyroid stimulating hormone with reflex to free t4 and free t3 (12/10/2024 3:23 PM EDT) TSH 0.90 0.40 - 4.00 mcIU/mL LAB CHEMISTRY METHOD 12/10/2024 7:21 PM EDT [facility] Blood Venous blood specimen / Unknown Venipuncture / Unknown 12/10/2024 3:23 PM EDT 12/10/2024 3:23 PM EDT us Joel Lozano MD LAB BLOOD ORDERABLES Melinda l Result [facility] [address] [place] [address], [place] [phone] * (ABNORMAL) Lipid panel with reflex to direct LDL (12/10/2024 3:23 PM EDT) Cholesterol 190 0 - 200 mg/dL LAB CHEMISTRY METHOD 12/10/2024 6:37 PM EDT [facility] Triglycerides 145 0 - 150 mg/dL LAB CHEMISTRY METHOD 12/10/2024 6:37 PM EDT [facility] HDL 46 >=40 mg/dL LAB CHEMISTRY METHOD 12/10/2024 6:37 PM EDT [facility] LDL Calculated 115(H) 0 - 100 mg/dL LAB CHEMISTRY METHOD 12/10/2024 6:37 PM EDT [facility] Comment:Estimated LDL Calcul ated using equation: Total cholesterol - HDL cholesterol - (Triglycerides/5) VLDL Cholesterol Yayo 29 mg/dL LAB CHEMISTRY METHOD 12/10/2024 6:37 PM EDT [facility] Non HDL Chol. (LDL+VLDL) 144 <145 mg/dL LAB CHEMISTRY METHOD 12/10/2024 6:37 PM EDT [facility] Chol/HDL Ratio 4.1 0.0 - 4.4 LAB CHEMISTRY METHOD 12/10/2024 6:37 PM [facility] Blood Venous blood specimen / Unknown Venipuncture / Unknown 12/10/2024 3:23 PM EDT 12/10/2024 3:23 PM EDT Joel Lozano MD LAB BLOOD ORDERABLES Melinda reyna Result [facility] [address] [place] [address], * CBC auto differential (12/10/2024 3:23 PM EDT) WBC 7.4 4.8 - 10.8 K/mcL LAB HEMETOLOGY METHOD 12/10/2024 6:17 PM EDT [facility] RBC 4.30 3.80 - 4.80 M/mcL LAB HEMETOLOGY METHOD 12/10/2024 6:17 PM EDT [facility] Hemoglobin 13.6 11.5 - 16.0 g/dL LAB HEMETOLOGY METHOD 12/10/2024 6:17 PM EDT [facility] Hematocrit 41.2 35.0 - 47.0 % LAB HEMETOLOGY METHOD 12/10/2024 6:17 PM EDT [facility] MCV 95.4 79.0 - 98.0 FL LAB HEMETOLOGY METHOD 12/10/2024 6:17 PM EDT [facility] MCH 31.5 27.0 - 32.0 pcg LAB HEMETOLOGY METHOD 12/10/2024 6:17 PM EDT [facility] MCHC 33.0 32.0 - 37.0 g/dL LAB HEMETOLOGY METHOD 12/10/2024 6:17 PM EDT [facility] RDW 13.4 11.0 - 15.0 % LAB HEMETOLOGY METHOD 12/10/2024 6:17 PM EDT [facility] Platelets 319 130 - 400 K/mcL LAB HEMETOLOGY METHOD 12/10/2024 6:17 PM EDT [facility] MPV 9.9 7.0 - 11.0 FL LAB HEMETOLOGY METHOD 12/10/2024 6:17 PM EDT [facility] NRBC 0.0 <1.0 % [facility] NR[facility] Absolute 0.00 <0.10 K/mcL LAB HEMETOLOGY METHOD 12/10/2024 6:17 PM [facility] Neutrophils Relative 55.2 % LAB HEMETOLOGY METHOD 12/10/2024 6:17 PM [facility] Lymphocytes Relative 36.1 % LAB HEMETOLOGY METHOD 12/10/2024 6:17 PM [facility] Monocytes Relative 7.1 % LAB HEMETOLOGY METHOD 12/10/2024 6:17 PM [facility] Eosinophils Relative 0.5 % LAB HEMETOLOGY METHOD 12/10/2024 6:17 PM [facility] Basophils Relative 0.7 % LAB HEMETOLOGY METHOD 12/10/2024 6:17 PM [facility] Immature Granulocytes Relative 0.4 % LAB HEMETOLOGY METHOD 12/10/2024 6:17 PM [facility] Neutrophils Absolute 4.10 1.50 - 7.00 K/mcL LAB HEMETOLOGY METHOD 12/10/2024 6:17 PM [facility] Lymphocytes Absolute 2.68 1.00 - 5.00 K/mcL LAB HEMETOLOGY METHOD 12/10/2024 6:17 PM [facility] Monocytes Absolute 0.53 0.20 - 1.00 K/mcL LAB HEMETOLOGY METHOD 12/10/2024 6:17 PM [facility] Eosinophils Absolute 0.04 0.00 - 0.50 K/mcL LAB HEMETOLOGY METHOD 12/10/2024 6:17 PM [facility] Basophils Absolute 0.05 0.00 - 0.20 K/[facility] HEMETOLOGY METHOD 12/10/2024 6:17 PM EDT [facility] Immature Granulocytes Absolute 0.03 0.00 - 0.03 K/[facility] LAB HEMETOLOGY METHOD 12/10/2024 6:17 PM EDT [facility] Blood Venous blood specimen / Unknown Venipuncture / Unknown 12/10/2024 3:23 PM EDT 12/10/2024 3:23 PM EDT Joel Lozano MD LAB BLOOD ORDERABLES Melinda l Result [facility] [address] [place] [address], [place] [phone] * Hemoglobin A1c (12/10/2024 3:23 PM EDT) Hemoglobin A1C 5.8 <6.5 % LAB CHEMISTRY METHOD 12/10/2024 9:43 PM EDT [facility] Mean Bld Glu Estim. 120 mg/dL LAB CHEMISTRY METHOD 12/10/2024 9:43 PM EDT [facility] Blood Venous blood specimen / Unknown Venipuncture / Unknown 12/10/2024 3:23 PM EDT 12/10/2024 3:23 PM EDT Joel Lozano MD LAB BLOOD ORDERABLES Melinda l Result [facility] [address] [place] [address], [place] [phone] * COLONOSCOPY Anest[place] - [facility] [place] [facility]COPY (11/19/2024 11:02 AM EDT) Anatomical Region Laterality Modality Other 11/19/2024 10:4 1 AM EDT Impressions 11/19/2024 11:04 AM EDT - Internal hemorrhoids. - No specimens collected. Recommendation: - Repeat colonoscopy in 5 years for surveillance. Narrative 11/19/2024 11:04 AM EDT [facility] Patient Name: Flores Tong Procedure Date: 11/19/2024 10:41 AM Date of : 1965 Age: 59 Gender: Female Note Status: Finalized Attending MD: Blaze Manley MD, Procedure Date No Time: 11/19/2024 Procedure: Colonoscopy Indications: Family history of colon cancer in a first-degree relative before age 60 years Providers: Blaze Manley MD Referring MD: Blaze Manley MD Medicines: Propofol per Anesthesia Complications: No immediate complications. Estimated Blood Loss: Estimated blood loss: none. Procedure: Pre-Anesthesia Assessment: - ASA Grade Assessment: II - A patient with mild systemic disease. After I obtained informed consent, the scope was passed under direct vision. Throughout the procedure, the patient's blood pressure, pulse, and oxygen saturations were monitored continuously.The Olympus Pediatric Colonoscope was introduced through the anus and advanced to the cecum, identified by appendiceal orifice and ileocecal valve. The colonoscopy was performed without difficulty. The patient tolerated the procedure well. The quality of the bowel preparation was good. Findings: The perianal and digital rectal examinations were normal. Internal hemorrhoids were found during endoscopy. The hemorrhoids were Grade I (internal hemorrhoids that do not prolapse). Procedure Code(s): --- Professional --- 19594, Colonoscopy, flexible; diagnostic, including collection of specimen(s) by brushing or washing, when performed (separate procedure) Diagnosis Code(s): --- Professional --- K64.0, First degree hemorrhoids Z80.0, Family history of malignant neoplasm of digestive organs CPT copyright 2020 [employer]. All rights reserved. The codes documented in this report are preliminary and upon collet maker review may be revised to meet current compliance requirements. Blaze Manley MD 11/19/2024 11:04:06 AM This report has been signed electronically.Blaze Manley MD Number of Addenda: 0 Note Initiated On: 11/19/2024 10:41 AM Scope In: Scope Out: Endoscopy Department at [facility] [address] [address] Procedure Note Blaze Manley MD - 11/19/2024 [facility] Patient Name: Flores Tong Procedure Date: 11/19/2024 10:41 AM Date of : 1965 Age: 59 Gender: Female Note Status: Finalized Attending MD: Blzae Manley MD, Procedure Date No Time: 11/19/2024 Procedure: Colonoscopy Indications: Family history of colon cancer in a first-degree relative before age 60 years Providers: Blaze Manley MD Referring MD: Blaze Manley MD Medicines: Propofol per Anesthesia Complications: No immediate complications. Estimated Blood Loss: Estimated blood loss: none. Procedure: Pre-Anesthesia Assessment: - ASA Grade Assessment: II - A patient with mild systemic disease. After I obtained informed consent, the scope was passed under direct vision. Throughout theprocedure, the patient's blood pressure, pulse, and oxygen saturations were monitored continuously.The Olympus Pediatric Colonoscope was introduced through theanus and advanced to the cecum, identified byappendiceal orifice and ileocecal valve. The colonoscopy was performed without difficulty. The patient tolerated the procedure well. The quality of the bowel preparation was good. Findings: The perianal and digital rectal examinations were normal. Internal hemorrhoids were found during endoscopy.The hemorrhoids were Grade I (internal hemorrhoids thatdo not prolapse). Procedure Code(s): --- Professional --- 77338, Colonoscopy, flexible; diagnostic, including collection of specimen(s) by brushing or washing,when performed (separate procedure) Diagnosis Code(s): --- Professional --- K64.0, First degree hemorrhoids Z80.0, Family history of malignant neoplasm of digestive organs CPT copyright 2020 [employer]. All rights reserved. The codes documented in this report are preliminary and upon collet maker reviewmay be revised to meet current compliance requirements. Blaze Manley MD 11/19/2024 11:04:06 AM This report has been signed electronically.Blaze Manley MD Number of Addenda: 0 Note Initiated On: 11/19/2024 10:41 AM Scope In: Scope Out: Endoscopy Department at [facility] - [address] [place] [address] IMPRESSION: - Internal hemorrhoids. - No specimens collected. Recommendation: - Repeat colonoscopy in 5 years for surveillance. Blaze Manley MD GI~PROCEDURE ORDERABLES Final Re sult * HPV with reflex genotype (06/29/2024 2:14 PM EDT) HPV Negative Negative LAB MICROBIOLOGY METHOD 06/30/2024 3:06 PM EDT [facility] Brushing/Spatula Cervix uteri structure / Unknown 06/29/2024 2:14 PM EDT 06/30/2024 8:01 AM EDT Clemencia Hendrickson [facility] MOLECULAR DIAGNOSTICS O RDERABLES Final Result [facility] [address] [place] [address], [place] [phone] * CT Lung Screening (06/03/2024 2:03 PM EST) Anatomical Region Laterality Modality Chest Computed Tomogra phy 06/05/2024 12:2 6 PM EST Impressions 06/05/2024 12:46 PM EST There are solid nodules now present. The largest measures 1 cm. There is no clinical information suggesting known primary malignancy. Recommendations for new or growing nodules greater than 0.8 cm include-PET/CT, tissue sampling and/or referral for further clinical evaluation. LUNG RADS: Lung-RADS 4B: VERY SUSPICIOUS S Modifier (Significant or Potentially Significant Findings): None present No suspicious nonpulmonary findings. RECOMMENDATIONS: PET/CT; consider tissue sampling; refer for further clinical evaluation. -------- FINAL REPORT -------- Dictated By: Mil Joel Dictated Date: 06/05/2024 12:26 ET Assigned Physician: Mil Joel Reviewed and Electronically Signed By: Mil Joel Signed Date: 06/05/2024 12:46 ET Workstation ID: [id number] Transcribed By: Self Edit Transcribed Date: 06/05/2024 12:26 ET Narrative 06/05/2024 12:46 PM EST EXAMINATION: CT CHEST WITHOUT CONTRAST LUNG CANCER SCREENING, LOW DOSE CLINICAL INFORMATION: Lung cancer screening. Current smoker COMPARISON: Regions of previous 05/31/2023 TECHNIQUE: Multidetector CT. Examination of the chest. Examination of the chest without IV contrast. Reformatting in the coronal and sagittal planes. Device: Revolution Fleming DLP: 160 mGy-cm CTDI: 4.89 Dose optimization was performed including the use of low-dose iterative reconstruction technique with automatic exposure control based on patient size. Type of contrast: None Volume of IV contrast: None Volume of contrast discarded: 0 mL FINDINGS: LUNG: No abnormality of the trachea or mainstem bronchi. No new focal pneumonia. LUNG NODULES: New irregular solid nodule posteromedial right upper lobe 06/03/2024-1.0 cm (/63) Solid nodule central portion right upper lobe 06/03/2024-0.4 cm (3/83) 05/31/2023-not present Solid peripheral nodule in the posterolateral right lower lobe 06/03/2024-0.6 cm (3/122) 05/31/2023-0.6 cm (3/98) New solid nodule abutting the pleura posteromedial left lower lobe 06/03/2024-0.6 cm (3/143) OTHER PULMONARY: The groundglass opacities demonstrated previously have essentially resolved. MEDIASTINUM: There are no enlarged mediastinal or hilar lymph nodes. No suspicious abnormalities of the esophagus CARDIAC: The heart is not enlarged. No pericardial fluid or thickening There are moderate coronary calcifications. VASCULAR: The aortic root is top normal. There is no enlargement of the central pulmonary arteries. PLEURA: There is no pleural fluid or pneumothorax AXILLA/CHEST WALL: There are no enlarged axillary lymph nodes. No chest wall mass demonstrated VISUALIZED UPPER ABDOMEN: No suspicious abnormality on limited assessment of the visualized upper abdomen MUSCULOSKELETAL: No suspicious focal bony lesion demonstrated. us Frankie Huggins MD IMG CT PROCEDURES Final Result * [facility] Mammo Digital Screening w Ermias bilat (04/07/2024 1:06 PM EST) Anatomical Region Laterality Modality Breast Bilateral Mammography 04/08/2024 12:0 4 PM EST Impressions 04/08/2024 12:20 PM EST 1. No mammographic evidence of malignancy 2. Scattered fibroglandular tissue BI-RADS CATEGORY: 2 - BENIGN RECOMMENDATION: Screening bilateral mammogram is recommended in 1 year. Mammo Location: [facility], [address] [place] [address], [id number], . -------- FINAL REPORT -------- Dictated By: Justyn Helton Dictated Date: 04/08/2024 12:04 ET Assigned Physician: Justyn Helton Reviewed and Electronically Signed By: Justyn Helton Signed Date: 04/08/2024 12:20 ET Workstation ID: [id number] Transcribed By: Self Edit Transcribed Date: 04/08/2024 12:04 ET Narrative 04/08/2024 12:20 PM EST A BILATERAL DIGITAL 3D SCREENING MAMMOGRAPHY HISTORY: Routine screening. Family history of breast cancer COMPARISON: Multiple priors dating back to 11/15/2021 Technique: Bilateral full field digital mammography (3D) was performed using standard CC and MLO projections , left cleavage view CAD was used to evaluate this mammogram. FINDINGS: Right: No suspicious masses, groups of microcalcification or areas of architectural distortion identified. Stable typically benign parenchymal asymmetries. Left: No suspicious masses, groups of microcalcification or areas of architectural distortion identified. Stable typically benign parenchymal asymmetries. BREAST DENSITY: B - There are scattered areas of fibroglandular density. Procedure Note Justyn Helton MD - 04/08/2024 A BILATERAL DIGITAL 3D SCREENING MAMMOGRAPHY HISTORY: Routine screening. Family history of breast cancer COMPARISON: Multiple priors dating back to 11/15/2021 Technique: Bilateral full field digital mammography (3D) was performedusing standard CC and MLO projections , left cleavage view CAD was used to evaluate this mammogram. FINDINGS: Right: No suspicious masses, groups of microcalcification or areas ofarchitectural distortion identified. Stable typically benign parenchymalasymmetries. Left: No suspicious masses, groups of microcalcification or areas ofarchitectural distortion identified. Stable typically benign parenchymalasymmetries. BREAST DENSITY: B - There are scattered areas of fibroglandular density. IMPRESSION: 1. No mammographic evidence of malignancy 2. Scattered fibroglandular tissue BI-RADS CATEGORY: 2 - BENIGN RECOMMENDATION: Screening bilateral mammogram is recommended in 1 year. Mammo Location: [facility], [address] [place] [address], [id number], . -------- FINAL REPORT -------- Dictated By: Justyn Helton Dictated Date: 04/08/2024 12:04 ET Assigned Physician: Justyn Helton Reviewed and Electronically Signed By: Justyn Helton Signed Date: 04/08/2024 12:20 ET Workstation ID: [id number] Transcribed By: Self Edit Transcribed Date: 04/08/2024 12:04 ET Joel Lozano MD IMG BI PROCEDURES Final R esult * Hepatitis C Screening (12/13/2021) Hepatitis C Screening Abstracted Historical Provider HEALTH MAINTENANCE Final Result from Last 3 Months or Most Recently Relevant to Health Maintenance Insurance [facility] [employer] Care Teams Working Foreman Relationship Specialty Start Date End Date Sydney Amaya MD [address] [place] [address] PCP - General Internal Medicine 12/10/24
--- NOTE | ~2025-02-15 | FL_ITS ---
EXAMINATION: FLUOROSCOPY GUIDANCE FOR NEEDLE PLACEMENT CLINICAL INFORMATION: BILATERAL TFESI, C7-T1 CERVICAL TFESI COMPARISON: None available. TECHNIQUE: Fluoroscopy guidance was provided to referring physician for C7-T1 LYNDSEY and bilateral L5-S1 lateral epidural steroid injection. FINDINGS: There is contrast opacifying the posterior pleural space of the C7-T1 disc level and bilateral extraspinal epidural space at the L5-S1 disc level. There is some posterior epidural contrast visualized 2. FLUOROSCOPY TIME: 30 seconds DOSE AREA PRODUCT: 171 uGy-m2 (microgray-meter squared) FL/FL guidance in OR IMPRESSION: Fluoroscopy guidance was provided to referring physician for C7-T1 and bilateral extraspinal L5-S1 epidural steroid injections. Electronically signed by: Russell Perez MD 02/15/2025 03:38 PM SAVI
[2025-02-15 07:41] VITALS: BMI 36.0
[2025-02-15 07:43] VITALS: BP 123/75; PULSE 84; RESP 16; TEMP 36.6; O2SAT 95
--- NOTE | 2025-02-15 08:43 | MHC.SHP ---
Pre-Procedural Eval Section A - 24 Hr Update-Section A only Date of Service: 02/15/25 Section B - Complete if H&P > 30 days Chief Complaint: Radiculopathy, cervical and Lumbar region Relevant Family History (Specify if Yes): No Relevant Social History: None Present Medications: see Short Stay Collaborative assessment Medical History: No relevant PMH History of Previous Operations: No relevant previous surgery Allergies: Allergies Allergy/AdvReac Type Severity Reaction Status Date / Time bee pollen (bee stings) Allergy Severe Anaphylaxis Verified 02/15/25 07:59 adhesive tape Allergy Intermediate Itching Verified 02/15/25 07:59 dronabinol Allergy Intermediate Rash Verified 02/15/25 07:59 environmental allergies Allergy Intermediate positive Verified 02/15/25 07:59 allergy test latex Allergy Intermediate Rash Verified 02/15/25 07:59 povidone-iodine Allergy Intermediate positive Verified 02/11/25 10:13 allergy test Review of Systems Sugical H&P ROS: Negative: Constitution, Cardiovascular, Respiratory, Neurological, Psychiatric, Hem-Onc, Allergic/Immunologic, Gastrointestinal, Genitourinary, Musculoskeletal, Integumentary, Endocrine and Eyes/Ears/Nose/Throat Exam Surgical H&P Exam: Normal: HEENT, Normal: Heart, Normal: Lungs, Normal: Extremities, Normal: Abdomen, Normal: Skin and Normal: Neurological Plan Diagnosis/Plan: Unchanged I have reviewed the history and physical and performed a pertinent physical examination on my patient. No changes have occurred unless specified. Time Spent With Patient Time: Total time managing care of this patient today ____ minutes.
--- NOTE | 2025-02-15 08:43 | W.PM.OPN ---
Operative Note Operative Note Date of Service: 02/15/25 Narrative: Procedure performed: C7-T1 Preop diagnosis: Cervical radiculitis Postop diagnosis: The same Anesthesia: Mac After informed consent was obtained patient was brought into the procedure room and placed in the prone position procedure table. Skin over cervicothoracic junction was prepped and draped in the usual sterile manner. C7-T1 interlaminar space was visualized utilizing fluoroscopy. After skin was anesthetized with lidocaine, 3.5 in 20 gauge Tuohy needle was introduced percutaneously and advanced superior edge of the T1 lamina. Needle was then slowly advanced into the epidural space utilizing loss of resistance technique. Once in place, needle placement was verified utilizing 3 cc of Omnipaque contrast solution. Good epidural spread was visualized. After negative aspiration for blood or cerebrospinal fluid, total volume of 5 cc containing 40 mg of triamcinolone and normal saline solution was injected. Radiation exposure was documented.
--- NOTE | 2025-02-15 08:44 | W.PM.OPN ---
Operative Note Operative Note Date of Service: 02/15/25 Narrative: Procedure performed: Bilateral transforaminal epidural steroid injection Preop diagnosis: Lumbar radiculitis Postop diagnosis: The same Anesthesia: Mac After informed consent was obtained, patient was placed on the procedure table in a prone position. Skin over lumbosacral area was prepped and draped in usual sterile manner. Right L5 pedicle was visualized utilizing fluoroscopy. Five inch 22 gauge spinal needle was introduced percutaneously and advanced towards the pedicle at about 6 o'clock position. Once level of neural foramina was reached, needle placement was verified utilizing 3 cc of Omnipaque contrast solution. Excellent flow through the neural foramina and epidural spread was identified without evidence of vascular uptake. Total volume of 6 cc containing 2 cc of 1% lidocaine, 40 mg of triamcinolone and normal saline solution were injected after negative aspiration for blood and cerebrospinal fluid. Identical procedure was repeated on the opposite side. Radiation exposure was documented in the chart.
[2025-02-15 09:48] VITALS: BP 105/55; PULSE 66; RESP 20; TEMP 36.2; O2SAT 94
[2025-02-15 09:50] VITALS: BP 99/54; PULSE 64; RESP 13; O2SAT 98
[2025-02-15 09:55] VITALS: BP 119/67; PULSE 70; RESP 18; O2SAT 97
[2025-02-15 10:03] VITALS: BP 119/67; PULSE 75; RESP 16; TEMP 36.1; O2SAT 98
== END 2025-02-15 11:00 | disposition home or self-care (01) ==
PROVIDERS: PCP Internal Medicine; Visit Provider Physical Medicine & Rehabilitation
PROC: (CPT 64483; principal; 2025-02-15 08:30)
PROC: (CPT 64483; 2025-02-15 08:30)
DX: M54.16 Radiculopathy, lumbar region (principal); G89.29 Other chronic pain; M54.12 Radiculopathy, cervical region; M54.2 Cervicalgia; Z79.899 Other long term (current) drug therapy
CPT/HCPCS: 64483; 62321; J2003; J2250; J2704; J3301; Q9967